=== PATIENT | female | born 1940 | race Caucasian/White ===

== ENCOUNTER 2017-04-03 16:08 | Emergency (ER) | payer OTHER, MEDICAID ==
[2017-04-03 16:20] VITALS: BP 151/77; PULSE 70; RESP 18; TEMP 97.7; O2SAT 97
--- NOTE | 2017-04-03 17:12 | EDPHY ---
H & P Smoking Status: Never smoked Time Seen by Provider: 04/03/17 16:47 HPI/ROS: CHIEF COMPLAINT: Fall, head injury HISTORY OF PRESENT ILLNESS: 76-year-old female presents to the emergency department with closed head injury. The patient was at home and fell off of a 2 foot stool when she was trying to unload and moved some boxes and she fell back and hit her head. She does not think that she lost consciousness. She has some mild right-sided neck stiffness. She complains of headache as well. She chipped her front teeth. She denies any presyncopal symptoms prior to her fall. Denies chest pain or difficulty breathing. Denies abdominal pain. Denies injury to upper or lower extremities. 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 She denies paresthesias in her upper or lower extremities. REVIEW OF SYSTEMS: Constitutional: No fever, no chills. Eyes: No double or blurry vision. ENT: No sore throat. Respiratory: No cough, no shortness of breath. Cardiac: No chest pain. Gastrointestinal: No abdominal pain, vomiting or diarrhea. Genitourinary: No dysuria. Musculoskeletal: Right-sided neck pain as above. No back pain. Skin: No rashes. Neurological: headache. (Chani Cooney) Past Medical/Surgical History: Arthritis (Chani Cooney) Social History: Lives with a roommate in [place] (Chani Cooney) Physical Exam: General Appearance: Alert, no distress. Mentating normally and answering questions appropriately. Palpable hematoma measuring 3 cm in diameter to the occiput of the scalp. Eyes: Pupils equal and round. Extraocular motions are all intact. ENT: Mouth: Mucous membranes moist. Respiratory: No wheezing, rhonchi, or rales, lungs are clear to auscultation. Cardiovascular: Regular rate and rhythm. Gastrointestinal: Abdomen is soft and nontender, no masses, no rebound or guarding, bowel sounds normal. Neurological: Alert and oriented x 3, cranial nerves II through XII grossly intact Skin: Warm and dry, no rashes. Musculoskeletal: Nontender to palpate along the cervical, thoracic or lumbar spine. Neck is supple. Mild pain with range of motion of her neck especially with extension and rotating to the left. Extremities: Full range of motion and no peripheral edema. Psychiatric: Patient is oriented X 3, there is no agitation. (Chani Cooney) Constitutional: Initial Vital Signs Temperature (C) 36.5 C 04/03/17 16:17 Heart Rate 70 04/03/17 16:17 Respiratory Rate 18 04/03/17 16:17 Blood Pressure 151/77 H 04/03/17 16:17 O2 Sat (%) 97 04/03/17 16:17 O2 Delivery Mode Room Air Allergies/Adverse Reactions: penicillin G [Penicillin G] Allergy (Unknown, Verified 04/03/17 16:17) HIVES RESPO. acetaminophen [From Percocet] Allergy (Verified 04/03/17 16:17) erythromycin base [Erythromycin Base] Allergy (Verified 04/03/17 16:17) hydrocodone bitartrate [From Vicodin] Allergy (Verified 04/03/17 16:17) hydroxyzine HCl [From Vistaril] Allergy (Verified 04/03/17 16:17) hydroxyzine pamoate [From Vistaril] Allergy (Verified 04/03/17 16:17) oxycodone HCl [From Percocet] Allergy (Verified 04/03/17 16:17) sulfamethoxazole [From Bactrim] Allergy (Verified 04/03/17 16:17) trimethoprim [From Bactrim] Allergy (Verified 04/03/17 16:17) SOY DRUGS Allergy (Unknown, Uncoded 12/16/15 15:41) canola oil Allergy (Uncoded 12/16/15 15:41) Home Medications: Medication Instructions Recorded NK [No Known Home Meds] 12/16/15 Medical Decision Making - Diagnostics Imaging: Discussed imaging studies w/ call manager Radiologist - Diagnostics Imaging Results: Imaging Impressions Cervical Spine CT 04/03/17 17:09 Impression: 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 No fracture or subluxation identified. Results called to Chani Quan PA-C, at 5:[address] 04/03/17 17:09 Impression: Underlying cerebral and cerebellar atrophy, without evidence of intracranial hemorrhage or acute cortical ischemia. Results called to Chani Quan PA-C, at 5:45 PM. At the time of the interpretation. ED Course/Re-evaluation: 76-year-old female presents to the emergency department after she had a mechanical fall off a stool. CT imaging of the head and cervical spine reveals no intracranial bleeding or skull fracture. Degenerative changes noted in the cervical spine. I do not think this patient admission to the hospital. She is comfortable being discharged home. Patient's gait is limited to her right meniscus tear which is chronic. She was however able to ambulate to the bathroom. (Taylorolimpia Chani Carol) Differential Diagnosis: Head injury including but not limited to concussion, skull fracture, intraparenchymal contusion, subarachnoid, subdural and epidural hematoma. (Chani Cooney) Departure - Departure Disposition: Home, Routine, Self-Care Clinical Impression: Head injury Qualifiers: Encounter type: initial encounter Qualified Code(s): S09.90XA - Unspecified injury of head, initial encounter Cervical strain Qualifiers: Encounter type: initial encounter Qualified Code(s): S16.1XXA - Strain of muscle, fascia and tendon at neck level, initial encounter Condition: Good Instructions: Cervical Strain (ED), Head Injury (ED), Acute Neck Pain (ED) Additional Instructions: Return to the emergency department if you develop worsening headache, vomiting, altered mental status, or if you feel worse in any way. Avoid any activity that might put you at risk for another head injury for at least 1 week. Referrals: Corrie Olivera MD [Primary Care Provider] - 2-3 days, if not improved
== END 2017-04-03 18:28 | disposition home or self-care (01) ==
DX: S09.90XA Unspecified injury of head, initial encounter (principal); S16.1XXA Strain of muscle, fascia and tendon at neck level, initial encounter; W08.XXXA Fall from other furniture, initial encounter; Y92.009 Unspecified place in unspecified non-institutional (private) residence as the place of occurrence of the external cause; Y99.8 Other external cause status

== ENCOUNTER → 2017-04-06 | Outpatient (CLI) | payer OTHER, MEDICAID | LOC: CIMAGING 11:28 | PROVIDERS: ATTEND Family Medicine | DX: M79.644 Pain in right finger(s) (principal); R93.6 Abnormal findings on diagnostic imaging of limbs; W19.XXXA Unspecified fall, initial encounter | CPT/HCPCS: 73140-PO ==

== ENCOUNTER 2017-09-09 21:02 | Emergency (ER) | payer OTHER, MEDICAID ==
[2017-09-09 21:22] VITALS: RESP 16; TEMP 98.2
--- NOTE | 2017-09-09 21:57 | EDPHY ---
H & P Stated Complaint: iron infusion 2 days ago, since dizzy/gamboa, today severe bilat lower back jack HPI/ROS: HPI CHIEF COMPLAINT: Multiple complaints HISTORY OF PRESENT ILLNESS: This patient is a 76-year-old female she presents emergency room by private vehicle with multitude of complaints. Patient states on Sunday due to anemia she got an iron infusion by Dr. Francisco Ortega who is her oncologist, she presents emergency room stating for the past 2 days she has had various symptoms including low back pain after this, she states she noticed some edema in her lower extremities that is now resolved additionally she reports she had a global headache did on Sunday that is completely gone now. She denies any chest pain or shortness of breath. Denies fever. Denies nausea vomiting. Denies chest pressure. She states she decided come the emergency room to the constellation of complaints of low back pain, intermittent lower abdominal pain, some edema in her lower extremities. She states her headache is resolved her abdomen does not hurt anymore. She states her back only hurts when she moves. Of note here in emergency room she appears well nontoxic in no acute distress. She states she got her iron infusion on Sunday she had various symptoms. Past Medical History: No significant medical history except for arthritis, platelet dysfunction, anemia iron deficiency Past Surgical History: Colon resection, hysterectomy Social History: Denies drugs alcohol tobacco. Resides locally. Family History: Noncontributory ROS REVIEW OF SYSTEMS: A comprehensive 10 point review of systems is otherwise negative aside from elements mentioned in the history of present illness. Exam Constitutional appears well nontoxic no acute distress, triage nursing summary reviewed, vital signs reviewed, awake/alert. Eyes normal conjunctivae and sclera, EOMI, PERRLA. HENT normal inspection, atraumatic, moist mucus membranes, no epistaxis, neck supple/ no meningismus, no raccoon eyes. Respiratory clear to auscultation bilaterally, normal breath sounds, no respiratory distress, no wheezing. Cardiovascular rate normal, regular rhythm, no murmur, no edema, distal pulses normal. Gastrointestinal soft, non-tender, no rebound, no guarding, normal bowel sounds, no distension, no pulsatile mass. Genitourinary no CVA tenderness. Musculoskeletal 1+ pretibial peripheral edema bilaterally of the lower extremities, no midline vertebral tenderness, full range of motion, no calf swelling, no tenderness of extremities, no meningismus, good pulses, neurovascularly intact. Skin pink, warm, & dry, no rash, skin atraumatic. Neurologic awake, alert and oriented x 3, AAOx3, moves all 4 extremities equally, motor intact, sensory intact, CN II-XII intact, normal cerebellar, normal vision, normal speech. Psychiatric normal mood/affect. Heme/Lymph/Immune no lymphadenopathy. Differential Diagnosis: Includes but is not limited to in a particular order allergic reaction, electrolyte disturbance, UTI, kidney failure Medical Decision Making: Plan for this patient she has no chest pain shortness of breath vital signs are stable. Will check basic blood work, and urinalysis re-evaluate. Re-evaluation: 1215: I reviewed her blood work she is anemic. This is already known. Additionally I have reviewed her urinalysis does show 4+ bacteria with nitrite positive this is most likely the cause of her suprapubic pain and some mild back pain. I do recommend that we treat her urinary tract infection she states that she has a long list of allergies to antibiotics. She did not take anything with sore oriented or any generic antibiotic. I will order dose of Keflex here. Cultures been ordered for urinary tract infection. Will touch base with the Pharmacy to make sure that the patient does not receive Keflex with sore her generic Keflex. If we do not have Keflex dose here that is non generic or soy based I will give her prescription she will need to fill at the pharmacy that is non generic non suite base. She has agreed for this. Additionally I think she can go home. She denies any fever, vomiting, and she feels well at this time. Her hemoglobin is reviewed. H&H 7.2. This is already known. There is why she received IV iron infusion. Patient unable to get a Keflex dose here as it is generic and soy based. Will provide her prescription for Keflex. Recommend following up with primary care doctor when she gets her Keflex filled as she has tolerated this in the past make sure it is non generic knots weight based. She understands. Distally return precautions discussed she understands return emergency room she develops worsening abdominal pain fever vomiting back pain or not feeling well. Source: Patient - Medical/Surgical History Hx Asthma: No Hx Chronic Respiratory Disease: No Hx Diabetes: No Hx Cardiac Disease: No Hx Renal Disease: No Hx Cirrhosis: No Hx Alcoholism: No Hx HIV/AIDS: No Hx Splenectomy or Spleen Trauma: No Other PMH: Platelet function disorder ,pe, sleep apnea. Hysterectomy , tonsilectomy tubal ligation. Colon resection. vertigo - Social History Smoking Status: Never smoked Constitutional: Initial Vital Signs Temperature (C) 36.8 C 09/09/17 21:14 Heart Rate 70 09/09/17 21:14 Respiratory Rate 16 09/09/17 21:14 Blood Pressure 142/82 H 09/09/17 21:14 O2 Sat (%) 96 09/09/17 21:14 O2 Delivery Mode Room Air Allergies/Adverse Reactions: penicillin G [Penicillin G] Allergy (Unknown, Verified 09/09/17 21:23) HIVES RESPO. acetaminophen [From Percocet] Allergy (Verified 09/09/17 21:23) erythromycin base [Erythromycin Base] Allergy (Verified 09/09/17 21:23) hydrocodone bitartrate [From Vicodin] Allergy (Verified 09/09/17 21:23) hydroxyzine HCl [From Vistaril] Allergy (Verified 09/09/17 21:23) hydroxyzine pamoate [From Vistaril] Allergy (Verified 09/09/17 21:23) oxycodone HCl [From Percocet] Allergy (Verified 09/09/17 21:23) sulfamethoxazole [From Bactrim] Allergy (Verified 09/09/17 21:23) trimethoprim [From Bactrim] Allergy (Verified 09/09/17 21:23) SOY DRUGS Allergy (Unknown, Uncoded 12/16/15 15:41) canola oil Allergy (Uncoded 12/16/15 15:41) Home Medications: Medication Instructions Recorded Ferumoxytol 09/09/17 Cephalexin [Keflex (*)] 500 mg PO TID #21 cap 09/10/17 Medical Decision Making - Data Points Laboratory Results: Laboratory Results 09/09/17 22:15 09/09/17 22:15 09/09/17 09/09/17 09/09/17 22:15 22:15 22:15 WBC 7.12 10^3/uL 10^3/uL (3.80-9.50) RBC 3.80 10^6/uL L 10^6/uL (4.18-5.33) Hgb 7.2 g/dL L g/dL (12.6-16.3) Hct 25.5 % L % (38.0-47.0) MCV 67.1 fL L fL (81.5-99.8) MCH 18.9 pg L pg (27.9-34.1) MCHC 28.2 g/dL L g/dL (32.4-36.7) RDW 18.6 % H % (11.5-15.2) Plt Count 168 10^3/uL 10^3/uL (150-400) MPV TNP Neut % (Auto) 59.8 % % (39.3-74.2) Lymph % (Auto) 29.8 % % (15.0-45.0) [place] % (Auto) 6.3 % % (4.5-13.0) Eos % (Auto) 1.8 % % (0.6-7.6) Baso % (Auto) 0.6 % % (0.3-1.7) Nucleat RBC Rel Count 0.3 % H % (0.0-0.2) Absolute Neuts (auto) 4.26 10^3/uL 10^3/uL (1.70-6.50) Absolute Lymphs (auto) 2.12 10^3/uL 10^3/uL (1.00-3.00) Absolute Monos (auto) 0.45 10^3/uL 10^3/uL (0.30-0.80) Absolute Eos (auto) 0.13 10^3/uL 10^3/uL (0.03-0.40) Absolute Basos (auto) 0.04 10^3/uL 10^3/uL (0.02-0.10) Absolute Nucleated RBC 0.02 10^3/uL H 10^3/uL (0-0.01) Immature Gran % 1.7 % H % (0.0-1.1) Immature Gran # 0.12 10^3/uL H 10^3/uL (0.00-0.10) Platelet Estimate ADEQUATE (ADEQ) Polychromasia 1+ H Hypochromasia 1+ H Microcytic Cells 2+ H Tear Drop Cells 1+ H Elliptocytes 1+ H Smear Review By Pending Sodium 142 mEq/L mEq/L (135-145) Potassium 3.8 mEq/L mEq/L (3.5-5.2) Chloride 106 mEq/L mEq/L (97-110) Carbon Dioxide 23 mEq/l mEq/l (22-31) Anion Gap 13 mEq/L mEq/L (8-16) BUN 11 mg/dL mg/dL (7-23) Creatinine 0.8 mg/dL mg/dL (0.6-1.0) Estimated GFR > 60 Glucose 105 mg/dL H mg/dL (70-100) Calcium 9.3 mg/dL mg/dL (8.5-10.4) Urine Color YELLOW Urine Appearance HAZY Urine pH 5.0 (5.0-7.5) Ur Specific [place] 1.016 (1.002-1.030) Urine Protein NEGATIVE (NEGATIVE) Urine Ketones NEGATIVE (NEGATIVE) Urine Blood NEGATIVE (NEGATIVE) Urine Nitrate POSITIVE H (NEGATIVE) Urine Bilirubin NEGATIVE (NEGATIVE) Urine Urobilinogen NEGATIVE EU EU (0.2-1.0) Ur Leukocyte Esterase TRACE H (NEGATIVE) Urine RBC 1-3 /hpf /hpf (0-3) Urine WBC 15-25 /hpf H /hpf (0-3) Ur Epithelial Cells TRACE /lpf /lpf (NONE-1+) Urine Bacteria 4+ /hpf H /hpf (NONE SEEN) Urine Mucus TRACE /lpf /lpf (NONE-1+) Urine Glucose NEGATIVE (NEGATIVE) Departure - Departure Disposition: Home, Routine, Self-Care Clinical Impression: UTI (urinary tract infection) Qualifiers: Urinary tract infection type: acute cystitis Hematuria presence: with hematuria Qualified Code(s): N30.01 - Acute cystitis with hematuria Condition: Good Instructions: Urinary Tract Infection in Women (ED) Additional Instructions: 1. Drink lots of fluids stay well-hydrated 2. Return emergency room if develops worsening symptoms questions or concerns. Referrals: Corrie Olivera MD [Primary Care Provider] - As per Instructions Prescriptions: Cephalexin [Keflex (*)] 500 mg PO TID #21 cap
[2017-09-09 22:30] LABS: PLATELET COUNT 168 10^3/uL (150-400)
[2017-09-10] MEDS ORDERED: CEPHALEXIN 500 MG CAP PO ONE (00:15)
[2017-09-10 00:41] VITALS: BP 135/84; PULSE 66; O2SAT 94
== END 2017-09-10 00:41 | disposition home or self-care (01) ==
DX: N30.01 Acute cystitis with hematuria (principal); B96.20 Unspecified Escherichia coli [E. coli] as the cause of diseases classified elsewhere; Z90.710 Acquired absence of both cervix and uterus; Z98.51 Tubal ligation status

== ENCOUNTER → 2017-10-10 | Outpatient (CLI) | payer OTHER, MEDICAID | LOC: CIMAGING 15:11 | PROVIDERS: ATTEND Family Medicine | DX: J40 Bronchitis, not specified as acute or chronic (principal); J18.0 Bronchopneumonia, unspecified organism | CPT/HCPCS: 71046-PO ==

== ENCOUNTER → 2018-03-28 | Outpatient (CLI) | payer OTHER, MEDICAID ==
[~2018-03-28] MED LIST: GADOBUTROL 10 ML VIAL IVP ONE
== END ==
LOC: FIMAGING 11:50
PROVIDERS: ATTEND Internal Medicine Hematology & Oncology
DX: Z12.39 Encounter for other screening for malignant neoplasm of breast (principal)
CPT/HCPCS: 0159T; A9585; C8908; 82565-PO

== ENCOUNTER 2019-01-14 19:10 | Emergency (ER) | payer OTHER, MEDICAID | END 2019-01-14 21:05 | disposition home or self-care (01) ==